=== PATIENT | female | born 1985 | race Two or more races ===

== ENCOUNTER 2021-09-17 06:02 | Day surgery (SDC) | payer OTHER | END 2021-09-17 10:50 | disposition home or self-care (01) | LOC: AMB-ENDOS 06:02 | PROVIDERS: ATTEND Surgery | DX: K31.89 Other diseases of stomach and duodenum (principal); K29.60 Other gastritis without bleeding; E66.9 Obesity, unspecified; K76.0 Fatty (change of) liver, not elsewhere classified; E11.9 Type 2 diabetes mellitus without complications ==